=== PATIENT | female | born 1990 ===

== ENCOUNTER 2018-08-28 13:57 | Outpatient (CLI) | payer OTHER ==
--- NOTE | 2018-08-28 12:34 | Diagnostic Imaging Report ---
Indication: Chronic rhinitis and headaches. Technique: Continuous helical transaxial imaging of the maxillofacial structures obtained after intravenous contrast administration. Coronal 2-D reformats were also obtained. Study obtained in a Siemens sensation [address] Total Dose length Product (DLP): 543.[address] Dose Index Volume (CTDIvol): 28.19 mGy Comparison: None Findings: The right maxillary sinus is hypoplastic with a diminished size of the aerated antral cavity. The osteomeatal units are clear bilaterally. There is no evidence of sinonasal obstruction. The remainder the paranasal sinuses including the frontal ethmoid sphenoid sinuses are clear. There is no evidence of osteitis or mucoperiosteal thickening. No air-fluid levels are identified. The orbits appear symmetric and normal bilaterally. Mastoids are clear bilaterally. IMPRESSION: Asymmetry of the maxillary sinuses with a markedly hypoplastic right maxillary sinus. No evidence of sinonasal obstruction or sinusitis. Clear ostiomeatal units noted.
== END 2018-08-28 15:57 | disposition home or self-care (01) ==
LOC: CAT 13:57
DX: R51 Headache (principal); J31.0 Chronic rhinitis
CPT/HCPCS: 70487; Q9967